=== PATIENT | female | born 1935 | race Caucasian/White ===

== ENCOUNTER → 2021-09-01 | Outpatient (CLI) | payer MEDICARE, BC ==
[2021-09-01 12:02] LABS: BASO # 0.05 K/mm3 (0.02-0.10); EOS # 0.21 K/mm3 (0.04-0.40); EOS % 2.7 % (1.0-5.0); HEMATOCRIT 42.6 % (37.0-47.0); HEMOGLOBIN 13.9 g/dL (12.5-16.0); LYMPH# 1.28 K/mm3 (1.50-4.00); MEAN CELL VOLUME 93 fl (78-100); MEAN CORPUSCULAR HEMOGLOBIN 30 pg (27-31); MEAN CORPUSCULAR HGB CONC 33 g/dL (33-37); MEAN PLATELET VOLUME 10.6 fl (7.4-10.4); MONO # 0.88 K/mm3 (0.20-0.80); PLATELET COUNT 177 K/mm3 (130-400); RED BLOOD COUNT 4.58 M/mm3 (4.10-5.30); RED CELL DISTRIBUTION WIDTH 13.3 % (11.5-14.5); WHITE BLOOD COUNT 7.7 K/mm3 (4.8-10.8)
[2021-09-01 12:23] LABS: ALBUMIN 3.8 g/dL (3.4-4.8); POTASSIUM 4.4 mmol/L (3.5-5.1)
[2021-09-01 12:24] LABS: CALCIUM 9.4 mg/dL (8.3-10.5)
[2021-09-01 12:25] LABS: TOTAL PROTEIN 6.5 g/dL (6.2-8.1)
[2021-09-01 12:27] LABS: TOTAL BILIRUBIN 0.7 mg/dL (0.2-1.2)
[2021-09-01 12:32] LABS: MAGNESIUM 1.97 mg/dL (1.60-2.60)
== END ==
LOC: LAB 11:22
PROVIDERS: Internal Medicine
DX: Z12.11 Encounter for screening for malignant neoplasm of colon (principal); I48.91 Unspecified atrial fibrillation; I34.0 Nonrheumatic mitral (valve) insufficiency; K90.9 Intestinal malabsorption, unspecified; E78.5 Hyperlipidemia, unspecified; I10 Essential (primary) hypertension

== ENCOUNTER → 2021-09-11 | Outpatient (CLI) | payer MEDICARE, BC | LOC: LAB 10:34 | DX: Z12.11 Encounter for screening for malignant neoplasm of colon (principal); I48.91 Unspecified atrial fibrillation; I34.0 Nonrheumatic mitral (valve) insufficiency; E78.5 Hyperlipidemia, unspecified; K90.9 Intestinal malabsorption, unspecified; I10 Essential (primary) hypertension ==

== ENCOUNTER → 2021-09-16 | Outpatient (CLI) | payer MEDICARE, BC ==
[2021-09-16 12:10] LABS: ALBUMIN 3.7 g/dL (3.4-4.8); POTASSIUM 4.4 mmol/L (3.5-5.1)
[2021-09-16 12:11] LABS: CALCIUM 9.3 mg/dL (8.3-10.5)
[2021-09-16 12:12] LABS: TOTAL PROTEIN 6.3 g/dL (6.2-8.1)
[2021-09-16 12:14] LABS: TOTAL BILIRUBIN 0.6 mg/dL (0.2-1.2)
[2021-09-16 12:19] LABS: MAGNESIUM 1.95 mg/dL (1.60-2.60)
== END ==
LOC: LAB 11:39
PROVIDERS: Internal Medicine
DX: I48.91 Unspecified atrial fibrillation (principal); I11.0 Hypertensive heart disease with heart failure; I50.33 Acute on chronic diastolic (congestive) heart failure; E78.5 Hyperlipidemia, unspecified; K90.9 Intestinal malabsorption, unspecified; I34.0 Nonrheumatic mitral (valve) insufficiency; H91.93 Unspecified hearing loss, bilateral

== ENCOUNTER → 2022-03-31 | Outpatient (CLI) | payer MEDICARE, BC ==
[~2022-03-31] MED LIST: CARDIZEM CD120 M1 PO; DICLOFENAC SOD100 GM TP; ELIQUIS5 MG PO; FEOSOL325 MG PO; KLOR-CON 1010 MEQ PO; LASIX40 M1 PO; MULTI-VITAMIN1 EACH PO; POTASSIUM CHLO10 ME8 PO; PRESERVISION A1 EAC1 PO; PRILOSEC 20MG20 MG PO; ROXICODONE 55 MG/TAB PO; ROXICODONE5 M1 PO; SENOKOT S 50 MG1 TAB PO; TYLENOL 325MG325 MG PO; ZOCOR10 M1 PO
== END ==
LOC: RAD 09:33
DX: I51.7 Cardiomegaly (principal); J98.11 Atelectasis; Z95.2 Presence of prosthetic heart valve

== ENCOUNTER → 2022-03-31 | Outpatient (CLI) | payer MEDICARE, BC ==
[2022-03-31 15:51] LABS: BASO # 0.04 K/mm3 (0.02-0.10); EOS # 0.24 K/mm3 (0.04-0.40); EOS % 3.3 % (1.0-5.0); HEMATOCRIT 42.4 % (37.0-47.0); HEMOGLOBIN 13.4 g/dL (12.5-16.0); LYMPH# 1.68 K/mm3 (1.50-4.00); MEAN CELL VOLUME 96 fl (78-100); MEAN CORPUSCULAR HEMOGLOBIN 30 pg (27-31); MEAN CORPUSCULAR HGB CONC 32 g/dL (33-37); MEAN PLATELET VOLUME 9.7 fl (7.4-10.4); MONO # 0.76 K/mm3 (0.20-0.80); NEU # 4.56 K/mm3 (1.40-6.50); PLATELET COUNT 233 K/mm3 (130-400); RED BLOOD COUNT 4.44 M/mm3 (4.10-5.30); RED CELL DISTRIBUTION WIDTH 13.4 % (11.5-14.5); WHITE BLOOD COUNT 7.3 K/mm3 (4.8-10.8)
[2022-03-31 16:07] LABS: ALBUMIN 3.7 g/dL (3.4-4.8); POTASSIUM 4.2 mmol/L (3.5-5.1)
[2022-03-31 16:08] LABS: CALCIUM 9.3 mg/dL (8.3-10.5)
[2022-03-31 16:09] LABS: TOTAL PROTEIN 6.6 g/dL (6.2-8.1)
[2022-03-31 16:11] LABS: TOTAL BILIRUBIN 0.3 mg/dL (0.2-1.2)
[2022-03-31 16:16] LABS: MAGNESIUM 2.09 mg/dL (1.60-2.60)
== END ==
LOC: LAB 15:15
PROVIDERS: Internal Medicine Adult Congenital Heart Disease
DX: R93.1 Abnormal findings on diagnostic imaging of heart and coronary circulation (principal)

== ENCOUNTER → 2022-05-07 | Outpatient (CLI) | payer MEDICARE, BC | LOC: AMSURD 15:47 | DX: I48.91 Unspecified atrial fibrillation (principal) ==

== ENCOUNTER 2022-05-20 08:00 | Outpatient (RCR) | payer MEDICARE, BC | END 2022-06-16 | disposition home or self-care (01) | LOC: CARDREHAB | DX: Z48.812 Encounter for surgical aftercare following surgery on the circulatory system (principal); Z95.2 Presence of prosthetic heart valve ==

== ENCOUNTER 2022-07-16 09:29 | Emergency (ER) | payer MEDICARE, BC ==
[~2022-07-16] VITALS: Ht 157.5 cm; Wt 70.6 kg
[2022-07-16] MEDS ORDERED: DIGOXIN125 MCG PO (09:39)
[2022-07-16] MEDS ORDERED: METOPROLOL SUCC25 M1 PO (09:40)
[2022-07-16 10:42] LABS: BASO # 0.04 K/mm3 (0.02-0.10); EOS # 0.31 K/mm3 (0.04-0.40); EOS % 3.2 % (1.0-5.0); HEMATOCRIT 43.7 % (37.0-47.0); HEMOGLOBIN 14.2 g/dL (12.5-16.0); LYMPH# 1.71 K/mm3 (1.50-4.00); MEAN CELL VOLUME 94 fl (78-100); MEAN CORPUSCULAR HEMOGLOBIN 31 pg (27-31); MEAN CORPUSCULAR HGB CONC 33 g/dL (33-37); MEAN PLATELET VOLUME 12.3 fl (7.4-10.4); MONO # 0.96 K/mm3 (0.20-0.80); PLATELET COUNT 178 K/mm3 (130-400); RED BLOOD COUNT 4.66 M/mm3 (4.10-5.30); RED CELL DISTRIBUTION WIDTH 13.8 % (11.5-14.5); WHITE BLOOD COUNT 9.5 K/mm3 (4.8-10.8)
[2022-07-16 10:47] LABS: ALBUMIN 3.9 g/dL (3.4-4.8)
[2022-07-16 10:48] LABS: POTASSIUM 4.7 mmol/L (3.5-5.1); SODIUM 142 mmol/L (136-145)
[2022-07-16 10:49] LABS: CALCIUM 9.8 mg/dL (8.3-10.5)
[2022-07-16 10:50] LABS: GLUCOSE 94 mg/dL (65-105); TOTAL PROTEIN 7.2 g/dL (6.2-8.1)
[2022-07-16 10:51] LABS: CARBON DIOXIDE 26 mmol/L (23-31)
[2022-07-16 10:55] LABS: AST-SGOT 26 U/L (5-34)
[2022-07-16 10:57] LABS: ALT/SGPT 15 U/L (0-55)
[2022-07-16 11:14] LABS: TOTAL BILIRUBIN 0.7 mg/dL (0.2-1.2)
[2022-07-16 16:16] VITALS: BP 136/87
== END 2022-07-16 16:10 | disposition home or self-care (01) ==
LOC: ED 09:29
PROVIDERS: Nurse Practitioner
DX: I49.8 Other specified cardiac arrhythmias (principal); I48.91 Unspecified atrial fibrillation; Z95.2 Presence of prosthetic heart valve; Z98.890 Other specified postprocedural states

== ENCOUNTER → 2022-07-23 | Outpatient (CLI) | payer MEDICARE, BC ==
[~2022-07-23] MED LIST changes: +DIGOXIN125 MCG PO; +METOPROLOL SUCC25 M1 PO
[2022-07-23 11:42] LABS: MAGNESIUM 2.1 mg/dL (1.60-2.60)
== END ==
LOC: LAB 11:12
PROVIDERS: Internal Medicine
DX: I11.0 Hypertensive heart disease with heart failure (principal); I50.33 Acute on chronic diastolic (congestive) heart failure; I48.91 Unspecified atrial fibrillation; E78.5 Hyperlipidemia, unspecified; I34.0 Nonrheumatic mitral (valve) insufficiency; K90.9 Intestinal malabsorption, unspecified; H91.93 Unspecified hearing loss, bilateral; Z98.890 Other specified postprocedural states

== ENCOUNTER → 2023-03-30 | Outpatient (CLI) | payer MEDICARE, BC | LOC: LAB 09:31 | DX: Z12.11 Encounter for screening for malignant neoplasm of colon (principal); I48.91 Unspecified atrial fibrillation; I11.0 Hypertensive heart disease with heart failure; I50.32 Chronic diastolic (congestive) heart failure; E78.5 Hyperlipidemia, unspecified; R73.9 Hyperglycemia, unspecified ==